=== PATIENT | female | born 1940 | race Caucasian/White ===

== ENCOUNTER → 2017-06-30 | Outpatient (CLI) | payer OTHER ==
[~2017-06-30] MED LIST: AMLODIPINE BESYL5 MG PO; CYANOCOBAL1000 MCG/M SC; LEVOTHYROXIN0.075 M1 PO; NAMENDA10 MG PO; SERTRALINE HYDR50 MG PO; SIMVASTATIN10 MG PO; XANAX0.25 MG PO
[2017-06-30 13:56] LABS: HEMATOCRIT 42.9 % (37.0-47.0); HEMOGLOBIN 14.3 g/dl (12.0-16.0); MEAN CELL VOLUME 89.9 fl (81.0-99.0); MEAN CORPUSCULAR HGB CONC 33.3 g/dl (33.0-37.0); MEAN PLATELET VOLUME 10.4 fl (9.6-12.3); RED BLOOD COUNT 4.77 10*6/uL (4.10-5.10); RED CELL DISTRI WIDTH 12.5 % (0-14.5); WHITE BLOOD COUNT 8.7 10*3/uL (4.8-10.8)
[2017-06-30 14:24] LABS: ALBUMIN 3.7 gm/dl (3.1-4.5); ALKALINE PHOSPHATASE 76 U/L (45-117); BUN 11 mg/dl (7-24); CHLORIDE 106 mmol/L (98-107); CHOLESTEROL 191 mg/dL (<200); CREATININE 0.74 mg/dL (0.55-1.02); HDL CHOLESTEROL 73 mg/dl (40-60); LDL CHOLESTEROL 106 mg/dL (9-159); POTASSIUM 4.7 mmol/L (3.5-5.1); SGOT/AST 17 IU/L (3-35); SGPT/ALT 21 U/L (12-78); SODIUM 140 mmol/L (136-145); TOTAL PROTEIN 7.6 gm/dL (6.4-8.2); TRIGLYCERIDES 59 mg/dl (<150); VLDL CHOLESTEROL 12 mg/dL (6-40)
== END | disposition home or self-care (01) ==
LOC: LAB 13:36
PROVIDERS: Family Medicine
DX: E55.9 Vitamin D deficiency, unspecified (principal); Z79.899 Other long term (current) drug therapy

== ENCOUNTER → 2018-04-07 | Outpatient (CLI) | payer MEDICARE ==
[2018-04-07 14:48] LABS: HEMATOCRIT 42.2 % (37.0-47.0); HEMOGLOBIN 13.5 g/dl (12.0-16.0); MEAN CELL VOLUME 92.3 fl (81.0-99.0); MEAN CORPUSCULAR HGB 29.5 pg (27.0-31.0); MEAN PLATELET VOLUME 10.5 fl (9.6-12.3); RED BLOOD COUNT 4.57 10*6/uL (4.10-5.10); RED CELL DISTRI WIDTH 13.1 % (0-14.5); WHITE BLOOD COUNT 7.9 10*3/uL (4.8-10.8)
[2018-04-07 15:24] LABS: ALBUMIN 3.7 gm/dl (3.1-4.5); BUN 16 mg/dl (7-24); CHLORIDE 104 mmol/L (98-107); POTASSIUM 4.7 mmol/L (3.5-5.1); SODIUM 141 mmol/L (136-145)
[2018-04-07 15:32] LABS: ALKALINE PHOSPHATASE 76 U/L (45-117); CHOLESTEROL 216 mg/dL (<200); CPK 49 U/L (26-192); CREATININE 0.69 mg/dL (0.55-1.02); FREE T4 0.95 ng/dl (0.76-1.46); HDL CHOLESTEROL 59 mg/dl (40-60); LDL CHOLESTEROL 117 mg/dL (9-159); SGOT/AST 20 IU/L (3-35); SGPT/ALT 20 U/L (12-78); TOTAL PROTEIN 7.3 gm/dL (6.4-8.2); TRIGLYCERIDES 198 mg/dl (<150); VLDL CHOLESTEROL 40 mg/dL (6-40)
== END | disposition home or self-care (01) ==
LOC: LAB 14:31
PROVIDERS: Family Medicine
DX: I10 Essential (primary) hypertension (principal); E78.00 Pure hypercholesterolemia, unspecified; E03.9 Hypothyroidism, unspecified; E55.9 Vitamin D deficiency, unspecified

== ENCOUNTER → 2018-09-28 | Outpatient (CLI) | payer MEDICARE ==
[2018-09-28 11:24] LABS: HEMATOCRIT 43.8 % (37.0-47.0); HEMOGLOBIN 14.1 g/dl (12.0-16.0); MEAN CELL VOLUME 92.4 fl (81.0-99.0); MEAN CORPUSCULAR HGB 29.7 pg (27.0-31.0); MEAN CORPUSCULAR HGB CONC 32.2 g/dl (33.0-37.0); MEAN PLATELET VOLUME 10.3 fl (9.6-12.3); RED BLOOD COUNT 4.74 10*6/uL (4.10-5.10); RED CELL DISTRI WIDTH 12.7 % (0-14.5); WHITE BLOOD COUNT 10.5 10*3/uL (4.8-10.8)
[2018-09-28 11:53] LABS: ALBUMIN 3.6 gm/dl (3.1-4.5); BUN 15 mg/dl (7-24); CHLORIDE 100 mmol/L (98-107); POTASSIUM 4.1 mmol/L (3.5-5.1); SODIUM 136 mmol/L (136-145)
[2018-09-28 12:01] LABS: ALKALINE PHOSPHATASE 80 U/L (45-117); CHOLESTEROL 172 mg/dL (<200); CPK 36 U/L (26-192); CREATININE 0.87 mg/dL (0.55-1.02); FREE T4 1.13 ng/dl (0.76-1.46); HDL CHOLESTEROL 68 mg/dl (40-60); LDL CHOLESTEROL 89 mg/dL (9-159); SGOT/AST 21 IU/L (3-35); SGPT/ALT 26 U/L (12-78); TOTAL PROTEIN 7.2 gm/dL (6.4-8.2); TRIGLYCERIDES 74 mg/dl (<150); VLDL CHOLESTEROL 15 mg/dL (6-40)
[2018-09-28 12:56] LABS: VITAMIN D, 25-HYDROXY 40.6 ng/mL (30-100)
== END | disposition home or self-care (01) ==
LOC: LAB 10:59
PROVIDERS: Family Medicine
DX: E11.9 Type 2 diabetes mellitus without complications (principal); E78.5 Hyperlipidemia, unspecified; E03.9 Hypothyroidism, unspecified; E55.9 Vitamin D deficiency, unspecified; I10 Essential (primary) hypertension; R53.83 Other fatigue

== ENCOUNTER → 2018-10-06 | Outpatient (CLI) | payer MEDICARE | END | disposition home or self-care (01) | LOC: RAD 13:19 | DX: M16.11 Unilateral primary osteoarthritis, right hip (principal); M47.897 Other spondylosis, lumbosacral region; M51.37 Other intervertebral disc degeneration, lumbosacral region; I70.0 Atherosclerosis of aorta ==

== ENCOUNTER → 2019-12-27 | Outpatient (CLI) | payer MEDICARE ==
[2019-12-27 11:55] LABS: HEMATOCRIT 43.6 % (37.0-47.0); HEMOGLOBIN 13.6 g/dl (12.0-16.0); MEAN CELL VOLUME 92.8 fl (81.0-99.0); MEAN CORPUSCULAR HGB 28.9 pg (27.0-31.0); MEAN CORPUSCULAR HGB CONC 31.2 g/dl (33.0-37.0); MEAN PLATELET VOLUME 11.1 fl (9.6-12.3); RED BLOOD COUNT 4.7 10*6/uL (4.10-5.10); RED CELL DISTRI WIDTH 13.2 % (0-14.5); WHITE BLOOD COUNT 7.6 10*3/uL (4.8-10.8)
[2019-12-27 12:23] LABS: CHLORIDE 105 mmol/L (98-107); POTASSIUM 4.3 mmol/L (3.5-5.1); SODIUM 140 mmol/L (136-145)
[2019-12-27 12:30] LABS: ALBUMIN 3.3 gm/dl (3.1-4.5); ALKALINE PHOSPHATASE 89 U/L (45-117); BUN 11 mg/dl (7-24); CHOLESTEROL 273 mg/dL (<200); CREATININE 0.65 mg/dL (0.55-1.02); HDL CHOLESTEROL 60 mg/dl (40-60); LDL CHOLESTEROL 190 mg/dL (9-159); SGOT/AST 11 IU/L (3-35); SGPT/ALT 18 U/L (12-78); TOTAL PROTEIN 7.2 gm/dL (6.4-8.2); TRIGLYCERIDES 114 mg/dl (<150); VLDL CHOLESTEROL 23 mg/dL (6-40)
== END | disposition home or self-care (01) ==
LOC: LAB 10:40
PROVIDERS: Family Medicine
DX: F41.1 Generalized anxiety disorder (principal); F03.90 Unspecified dementia, unspecified severity, without behavioral disturbance, psychotic disturbance, mood disturbance, and anxiety; E78.00 Pure hypercholesterolemia, unspecified; E55.9 Vitamin D deficiency, unspecified

== ENCOUNTER 2025-07-03 00:21 | Inpatient (IN) | payer MEDICARE ==
[~2025-07-03] VITALS: Ht 157.4 cm; Wt 58.1 kg
[2025-07-03 00:32] VITALS: BP 147/60
[2025-07-03 00:53] LABS: BASO # 0.0 10*3/uL (0.0-0.1); BASO % 0.5 % (0.0-1.0); EOS # 0.2 10*3/uL (0.0-0.4); EOS % 1.7 % (1.0-4.0); MEAN CELL VOLUME 88.8 fl (81.0-99.0); MEAN CORPUSCULAR HGB 27.9 pg (27.0-31.0); MEAN PLATELET VOLUME 10.7 fl (9.6-12.3); MONO # 0.8 10*3/uL (0.1-1.0); MONO % 9.0 % (3.0-9.0); NEUT # 6.3 10*3/uL (2.3-7.9); NEUT % 72.8 % (47.0-73.0); NUCLEATED RED BLOOD CELL 0.0 % (0.0-0.0); NUCLEATED RED BLOOD CELL 0.0 10*3/uL (0.0-0.0); PLATELET COUNT AUTOMATED 239 10*3/uL (130-400); RED CELL DISTRI WIDTH 14.6 % (0-14.5)
[2025-07-03 01:15] LABS: BUN < 5 mg/dl (9-23); ETHYL ALCOHOL < 3.0 mg/dl (<3); SGPT/ALT 10 U/L (5-49)
[2025-07-03 02:23] LABS: BILIRUBIN Negative (Negative); BLOOD 2+ (Negative); CLARITY Turbid (Clear); COLOR Yellow (Yellow); KETONE Negative (Negative); LEUKO ESTERASE 3+ (Negative); NITRITE Negative (Negative); PH 7.0 (4.5-8.0); SPECIFIC GRAVITY 1.015 (1.001-1.030); UROBILINOGEN 0.2 E.U./dl (0.0-1.0)
[2025-07-03 02:33] LABS: URINE AMPHETAMINES Negative (1000ng/ml); URINE BARBITURATES Negative (200ng/ml); URINE BENZODIAZEPINES Negative (200ng/ml); URINE CANNABINOIDS (THC) Negative (50ng/ml); URINE COCAINE Negative (300ng/ml); URINE METHADONE Negative (300ng/ml); URINE OPIATES Negative (300ng/ml); URINE PHENCYCLIDINE Negative (25ng/ml)
[2025-07-03 02:38] LABS: BACTERIA 4+
[2025-07-03 02:39] LABS: RBC 16-20 rbc/hpf (0-2); WBC 31-40 wbc/hpf (0-5)
[2025-07-03] MEDS ORDERED: Ipratropium Brom3 ML INH ×2 (06:18→08:36)
[2025-07-03] MEDS ORDERED: AMLODIPINE BESY10 MG PO (06:20)
[2025-07-03] MEDS ORDERED: VENTOLIN 02.5 MG/3 M INH (06:20)
[2025-07-03] MEDS ORDERED: TRAZODONE100 MG PO ×2 (06:21→08:41)
[2025-07-03] MEDS ORDERED: SERTRALINE HYD100 MG PO (06:22)
[2025-07-03] MEDS ORDERED: RIVASTIGMINE1 EAC2 TD (06:23)
[2025-07-03] MEDS ORDERED: ATIVAN1 MG PO (06:25)
[2025-07-03] MEDS ORDERED: OMEPRAZOLE40 MG PO ×2 (06:26→08:40)
[2025-07-03] MEDS ORDERED: SENTRY TABLET1 EACH PO (06:27)
[2025-07-03] MEDS ORDERED: ANTI-DIARRHEAL2 MG PO (06:27)
[2025-07-03] MEDS ORDERED: [UNRECOGNIZED DRUG - OTHER] PO ×2 (06:28→08:32)
[2025-07-03] MEDS ORDERED: MOTRIN 600 MG E4 TAB PO (06:28)
[2025-07-03] MEDS ORDERED: CALCIUM PO ×2 (06:28→08:32)
[2025-07-03] MEDS ORDERED: MG-AL HYDROXIDE/SIMETICONE 30 ML UDC PO PRN (06:45)
[2025-07-03] MEDS ORDERED: ACETAMINOPHEN 325 MG TAB PO PRN (06:45)
[2025-07-03] MEDS ORDERED: hydrOXYzine hydrochloride 50 MG/ML VIAL IM PRN (06:50)
[2025-07-03] MEDS ORDERED: LORazepam 1 MG TAB SL PRN (06:50)
[2025-07-03 06:55] VITALS: BP 156/81
[2025-07-03] MEDS ORDERED: Water, Sterile 10 ML VIAL ONE (07:08)
[2025-07-03] MEDS ORDERED: Water, Sterile 10 ML VIAL IM PRN (07:10)
[2025-07-03 07:50] VITALS: BP 131/54
[2025-07-03] MEDS ORDERED: ALBUTEROL0.63 MG/3 INH (08:26)
[2025-07-03] MEDS ORDERED: NORVASC10 MG PO (08:26)
[2025-07-03] MEDS ORDERED: BIOFREEZE89 ML T (08:30)
[2025-07-03] MEDS ORDERED: CALMOSEPTINE OI71 GM T (08:33)
[2025-07-03] MEDS ORDERED: DULCOLAX10 M1 R (08:33)
[2025-07-03] MEDS ORDERED: EXELON1 EAC2 TD (08:34)
[2025-07-03] MEDS ORDERED: Motrin,Rufen800 MG PO (08:35)
[2025-07-03] MEDS ORDERED: LOPERAMIDE HCL2 MG PO (08:37)
[2025-07-03] MEDS ORDERED: LIDODERM1 EACH T (08:37)
[2025-07-03] MEDS ORDERED: MILK OF MA400 MG/53 PO (08:38)
[2025-07-03] MEDS ORDERED: MULTIPLE VITAM1 EAC1 PO (08:39)
[2025-07-03] MEDS ORDERED: NAMENDA-5 PO (08:39)
[2025-07-03] MEDS ORDERED: SYNTHROID,LEVO75 MCG PO (08:41)
[2025-07-03] MEDS ORDERED: TYLENOL325 M2 PO (08:42)
[2025-07-03] MEDS ORDERED: TYLENOL EXTRA500 MG PO (08:42)
[2025-07-03] MEDS ORDERED: ZOLOFT100 MG PO (08:43)
[2025-07-03] MEDS ORDERED: LORazepam 1 MG TAB PO PRN (08:48)
[2025-07-03] MEDS ORDERED: RIVASTIGMINE 13.3 MG/24 HR TDM T SCH (09:00)
[2025-07-03] MEDS ORDERED: DIVALPROEX (DR) 250 MG TAB PO SCH (09:00)
[2025-07-03] MEDS ORDERED: Rivastigmine Tartrate 4.6 MG/24 HR PATCH T SCH (09:00)
[2025-07-03] MEDS ORDERED: Memantine Hydrochloride 5 MG TAB PO SCH (09:00)
[2025-07-03 20:00] VITALS: BP 145/77
[2025-07-03] MEDS ORDERED: Nitrofurantoin Monohydrate/N 100 MG CAP PO SCH (22:00)
[2025-07-04 06:38] LABS: BASO # 0.1 10*3/uL (0.0-0.1); BASO % 1.3 % (0.0-1.0); EOS # 0.5 10*3/uL (0.0-0.4); EOS % 7.0 % (1.0-4.0); MEAN CELL VOLUME 90.2 fl (81.0-99.0); MEAN CORPUSCULAR HGB 27.8 pg (27.0-31.0); MEAN PLATELET VOLUME 11.1 fl (9.6-12.3); MONO # 0.7 10*3/uL (0.1-1.0); MONO % 9.3 % (3.0-9.0); NEUT # 3.8 10*3/uL (2.3-7.9); NEUT % 50.5 % (47.0-73.0); NUCLEATED RED BLOOD CELL 0.0 % (0.0-0.0); NUCLEATED RED BLOOD CELL 0.0 10*3/uL (0.0-0.0); PLATELET COUNT AUTOMATED 229 10*3/uL (130-400); RED CELL DISTRI WIDTH 14.6 % (0-14.5)
[2025-07-04 07:20] LABS: BUN 6 mg/dl (9-23); LDL CHOLESTEROL 146 mg/dL (9-159)
[2025-07-04 07:22] LABS: SGPT/ALT < 7 U/L (5-49)
[2025-07-04 08:25] LABS: VITAMIN D, 25-HYDROXY 65.4 ng/mL (30-100)
[2025-07-04 08:26] VITALS: BP 116/67
[2025-07-04 20:49] VITALS: BP 97/56
[2025-07-04] MEDS ORDERED: Mirtazapine 15 MG TAB PO SCH (21:00)
[2025-07-05 08:15] VITALS: BP 127/53
[2025-07-05] MEDS ORDERED: FOAM BANDAGE 1 EACH BANDAGE T ONE (14:40)
[2025-07-05 20:00] VITALS: BP 120/54
[2025-07-05] MEDS ORDERED: DIVALPROEX (DR) 500 MG TAB PO SCH (21:00)
[2025-07-06 08:00] VITALS: BP 106/67
[2025-07-06 20:00] VITALS: BP 121/58
[2025-07-07 20:00] VITALS: BP 108/56
[2025-07-08 08:00] VITALS: BP 112/59
[2025-07-08] MEDS ORDERED: Ondansetron Hydrochloride 4 MG TAB SL PRN (13:55)
[2025-07-08 20:00] VITALS: BP 124/58
[2025-07-09 08:16] VITALS: BP 110/60
[2025-07-09 09:34] LABS: MEAN CELL VOLUME 88.3 fl (81.0-99.0); MEAN CORPUSCULAR HGB 28.1 pg (27.0-31.0); MEAN PLATELET VOLUME 11.0 fl (9.6-12.3); NUCLEATED RED BLOOD CELL 0.0 % (0.0-0.0); NUCLEATED RED BLOOD CELL 0.0 10*3/uL (0.0-0.0); PLATELET COUNT AUTOMATED 245 10*3/uL (130-400); RED CELL DISTRI WIDTH 14.9 % (0-14.5)
[2025-07-09 09:37] LABS: MANUAL DIFF REFLEX YES
[2025-07-09 09:55] LABS: PLATELET SUFFICIENCY NORMAL (NORMAL)
[2025-07-09 09:56] LABS: BUN 10 mg/dl (9-23); SGPT/ALT 9 U/L (5-49)
[2025-07-09 11:10] LABS: BILIRUBIN 2+ (Negative); BLOOD Negative (Negative); CLARITY Cloudy (Clear); COLOR Dark Yellow (Yellow); KETONE 2+ (Negative); LEUKO ESTERASE Trace (Negative); NITRITE Negative (Negative); PH 6.0 (4.5-8.0); SPECIFIC GRAVITY >= 1.030 (1.001-1.030); UROBILINOGEN 1.0 E.U./dl (0.0-1.0)
[2025-07-09 11:13] LABS: BACTERIA 2+; EPITHELIAL CELLS 16-20; MUCOUS 2+
[2025-07-09] MEDS ORDERED: AMOXICILLIN 500 MG CAP PO SCH (14:00)
[2025-07-09 20:00] VITALS: BP 117/84
[2025-07-10 08:18] VITALS: BP 129/53
[2025-07-10 18:57] LABS: BILIRUBIN Negative (Negative); BLOOD Negative (Negative); CLARITY Clear (Clear); COLOR Yellow (Yellow); KETONE 1+ (Negative); LEUKO ESTERASE 2+ (Negative); NITRITE Negative (Negative); PH 6.5 (4.5-8.0); SPECIFIC GRAVITY 1.015 (1.001-1.030); UROBILINOGEN 1.0 E.U./dl (0.0-1.0)
[2025-07-10 19:24] LABS: BACTERIA 1+; RBC 0-2 rbc/hpf (0-2); WBC 41-50 wbc/hpf (0-5)
[2025-07-10 20:00] VITALS: BP 98/50
[2025-07-11 07:37] LABS: BUN 9 mg/dl (9-23)
[2025-07-11] MEDS ORDERED: POTASSIUM CHLORIDE 20 MEQ TAB PO ONE (07:55)
[2025-07-11 08:15] LABS: BASO # 0.0 10*3/uL (0.0-0.1); BASO % 0.7 % (0.0-1.0); EOS # 0.4 10*3/uL (0.0-0.4); EOS % 6.6 % (1.0-4.0); MEAN CELL VOLUME 90.9 fl (81.0-99.0); MEAN CORPUSCULAR HGB 28.1 pg (27.0-31.0); MEAN PLATELET VOLUME 12.0 fl (9.6-12.3); MONO # 0.6 10*3/uL (0.1-1.0); MONO % 9.7 % (3.0-9.0); NEUT # 2.8 10*3/uL (2.3-7.9); NEUT % 47.6 % (47.0-73.0); NUCLEATED RED BLOOD CELL 0.0 % (0.0-0.0); NUCLEATED RED BLOOD CELL 0.0 10*3/uL (0.0-0.0); PLATELET COUNT AUTOMATED 169 10*3/uL (130-400); RED CELL DISTRI WIDTH 14.7 % (0-14.5)
[2025-07-11 08:23] VITALS: BP 92/50
[2025-07-11] MEDS ORDERED: AMOXICILLIN500 M3 PO (10:43)
[2025-07-11] MEDS ORDERED: DIVALPROEX SOD500 MG PO (10:54)
[2025-07-11] MEDS ORDERED: RIVASTIGMINE1 EAC2 T (10:54)
[2025-07-11] MEDS ORDERED: MEMANTINE HCL10 MG PO (10:54)
[2025-07-11] MEDS ORDERED: MIRTAZAPINE15 M2 PO (10:54)
[2025-07-11] MEDS ORDERED: HYDROXYZINE PAM25 M1 PO (11:38)
== END 2025-07-11 16:08 | DRG 883 ==
LOC: ED 00:21 → 3N 06:21
PROVIDERS: Internal Medicine; Registered Nurse; ADMIT Psychiatry & Neurology Psychiatry; ATTEND Psychiatry & Neurology Psychiatry
PROC: GZHZZZZ Group Psychotherapy (ICD-10-PCS; principal; 2025-07-03)
PROC: GZ51ZZZ Individual Psychotherapy, Behavioral (ICD-10-PCS; 2025-07-03)
DX: F63.81 Intermittent explosive disorder (principal); E43 Unspecified severe protein-calorie malnutrition; N39.0 Urinary tract infection, site not specified; I10 Essential (primary) hypertension; K21.9 Gastro-esophageal reflux disease without esophagitis; F32.9 Major depressive disorder, single episode, unspecified; J44.9 Chronic obstructive pulmonary disease, unspecified; G30.9 Alzheimer's disease, unspecified; F02.B0 Dementia in other diseases classified elsewhere, moderate, without behavioral disturbance, psychotic disturbance, mood disturbance, and anxiety; F41.9 Anxiety disorder, unspecified; E87.6 Hypokalemia; Z66 Do not resuscitate; R73.9 Hyperglycemia, unspecified; G47.00 Insomnia, unspecified; E03.9 Hypothyroidism, unspecified; D64.9 Anemia, unspecified; Z88.8 Allergy status to other drugs, medicaments and biological substances; Z68.23 Body mass index [BMI] 23.0-23.9, adult